=== PATIENT | female | born 1985 | race Caucasian/White ===

== ENCOUNTER 2017-11-11 22:19 | Observation (INO) | payer MEDICAID ==
[2017-11-11 23:50] LABS: PLATELET COUNT 196 10^3/uL (150-400)
--- NOTE | 2017-11-12 00:13 | PDGENHP ---
History and Physical History and Physical: CARE: [facility] HPI: Patient is a 32 yo G 3 P2 at 36/5 weeks ega who presents to L&D with complaints of feeling light headed and dizzy off and on for the last several days. She states baby has been active, denies regular contractions, VB or LOF. States her blood sugars have been WNL, was eating earlier this evening when she started to feel dizzy, and is well hydrated. Currently denies dizziness. She has had her PNC at [facility] and is scheduled to be induced this Monday morning for gestational diabetes. EDC: 12/03/17 which is based on US at 16 weeks. Her is complicated by: -history of IUGR with previous (normal growth with this ) -Gestational diabetes - insulin controlled Review of Systems: Constitutional: Denies any fever, chills, or fatigue HEENT: denies any visual changes, difficulty swallowing, hearing loss Cardiovascular: Denies any chest pain, palpitations, leg swelling Respiratory: denies any cough, wheezing, or shortness of breathe GI: Denies any nausea, vomiting, diarrhea, constipation : denies any dysuria, urgency, frequency, vaginal bleeding Musculoskeletal: denies any muscle or bone pain Skin: denies any rashes Neuro: denies any headache, seizures, endorses lightheadedness, dizziness the last few days. Psychiatric: denies any depression, anxiety, or SI/HI thoughts HISTORY: Previous OB history: 2012 at 37 wks ega IUGR, GDM; 2006 37 wks ega, GDM Past medical history: Depression - untreated Past surgical history: none Medications: PNV, insulin Allergies (list reaction): NKDA LABS:(not available on records) PHYSICAL EXAM: VSS - O2 sat Constitutional: WN, A&Ox3 HEENT: normocephalic atraumatic, supple Heart: RRR, no murmur Chest: CTA-B Abdomen: Soft, nontender, gravid SVE: deferred Extremities: sml edema, negative corrie's sign Neuro: grossly normal Psych: normal affect assessment: Reassuring FHTs, baseline 140s +accels, no decels, moderate variability Contractions: toco quiet Assessment: 1) 32 yo G 3 P 2 with IUP@ 36.6 weeks ega who presents with history of dizziness 2) Stable vital signs and O2 saturation - Blood sugar 124 3) GBS neg 4) Cat 1 FHR tracing 5) Anemic -HCT 33.1 Plan: 1) Discharge home - to F/U for IOL Monday AM at [place] 2) Reviewed [facility]KC and labor precautions 3) Recommended OTC iron supplement daily, increase hydration, notify provider with abnormal blood sugars or recurrence of today's symptom Patient verbalizes understanding of instructions and is comfortable with POC
== END 2017-11-12 00:05 | disposition home or self-care (01) ==
LOC: FLD 22:19
PROVIDERS: ADMIT Advanced Practice Midwife; ATTEND Advanced Practice Midwife
DX: R55 Syncope and collapse (principal); O26.893 Other specified pregnancy related conditions, third trimester; O24.414 Gestational diabetes mellitus in pregnancy, insulin controlled; Z3A.36 36 weeks gestation of pregnancy

== ENCOUNTER 2017-11-21 20:50 | Emergency (ER) | payer MEDICAID ==
[2017-11-21 20:57] VITALS: BP 112/87
--- NOTE | 2017-11-21 21:17 | EDPHY ---
H & P Stated Complaint: possible hernia x8 days Time Seen by Provider: 11/21/17 21:14 - Personal History LMP (Females 10-55): Extended Cycle BCP/Inj Current Tetanus/Diphtheria Vaccine: Yes - Medical/Surgical History Hx Asthma: No Hx Chronic Respiratory Disease: No Hx Diabetes: No Hx Cardiac Disease: No Hx Renal Disease: No Hx Cirrhosis: No Hx Alcoholism: No Hx HIV/AIDS: No Hx Splenectomy or Spleen Trauma: No Other PMH: -Hx PTD. -GDM with current and previous pregnancies, insulin controlled. -Hx tachycardia - Social History Smoking Status: Former smoker Constitutional: Initial Vital Signs Temperature (C) 36.7 C 11/21/17 20:55 Heart Rate 94 11/21/17 20:55 Respiratory Rate 18 11/21/17 20:55 Blood Pressure 112/87 H 11/21/17 20:55 O2 Sat (%) 96 11/21/17 20:55 O2 Delivery Mode Room Air Allergies/Adverse Reactions: No Known Allergies Allergy (Unverified 11/11/17 22:59) Medical Decision Making ED Course/Re-evaluation: CHIEF COMPLAINT: Abdominal pain HISTORY OF PRESENT ILLNESS: 32-year-old female who gave 8 days ago to a healthy baby girl. She has a ventral type hernia from her rectus abdominus diathesis. She is concerned about and wondering when it will go away. She denies any nausea vomiting. She denies any bowel or bladder problems. She denies any pain except when she strains her abdominal muscles. REVIEW OF SYSTEMS: A 10 point review of systems was performed and is negative with the exception of the elements mentioned in the history of present illness. PHYSICAL EXAM: HR, BP, O2 Sat, RR. Temp noted General Appearance: Alert, well hydrated, appropriate, and non-toxic appearing. Head: Atraumatic without scalp tenderness or obvious injury Eyes: Pupils equal, round, reactive to light and accommodation, EOMI, no trauma , no injection. Ears: Clear bilaterally, no perforation, normal landmarks Nose: Atraumatic, no rhinorrhea, clear. Throat: There is no erythema or exudates, no lesions, normal tonsils, mucus membranes moist. Neck: Supple, 2+ carotid upstroke, nontender, no lymphadenopathy. Respiratory: No retractions, no distress, no wheezes, and no accessory muscle use. Lungs are clear to auscultation bilaterally. Cardiovascular: Regular rate and rhythm, no murmurs, rubs, or gallops. Bilateral carotid, radial, dorsalis pedis, and posterior tibial pulses intact. Good capillary refill all extremities. Gastrointestinal: Normal abdominal diathesis . No incarceration no strangulation. Abdomen is soft, nontender, non-distended, no masses, no rebound , no guarding, no peritoneal signs. Musculoskeletal: Normal active ROM of all extremities, atraumatic. Neurological: Alert, appropriate, and interactive. The patient has normal DTRs and non-focal cranial nerves, motor, sensory, and cerebellar exam. Skin: No rashes, good turgor, no nodules on palpation. Past medical history: Noncontributory Past surgical history: Noncontributory Family history: Noncontributory Social history: , employed, does not abuse tobacco drugs or alcohol DIFFERENTIAL DIAGNOSIS: The differential diagnosis for the patient's abdominal pain included but was not limited to ovarian cyst, pelvic inflammatory disease, ovarian torsion, urinary tract infection, hernia, cholecystitis, and appendicitis. MEDICAL DECISION MAKING: This patient has a normal abdominal rectus diathesis . She never had this with her prior 2 pregnancies so she was concerned about it. She has some symptoms of bulging when she uses her abdominal muscles. She does not have any significant pain when she is just laying there. She also has some bulging when she has bowel movements. The bulge never gets stuck out. She has no evidence of nausea vomiting or any bowel dysfunction. She will follow up with her OBGYN this is a normal abdominal muscle rectus abdominus diathesis with . Departure - Departure Disposition: Home, Routine, Self-Care Clinical Impression: Ventral hernia Qualifiers: Obstruction and gangrene presence: without obstruction or gangrene Qualified Code(s): K43.9 - Ventral hernia without obstruction or gangrene Condition: Good Instructions: Ventral Hernia (ED) Referrals: NONE *PRIMARY CARE P,. [Primary Care Provider] - As per Instructions
== END 2017-11-21 21:40 | disposition home or self-care (01) ==
DX: O99.63 Diseases of the digestive system complicating the puerperium (principal); K43.9 Ventral hernia without obstruction or gangrene; Z87.891 Personal history of nicotine dependence